=== PATIENT | male | born 1945 | race Hispanic/Latino ===

== ENCOUNTER 2016-03-14 13:28 | Inpatient (IN) | payer MEDICARE, OTHER ==
[~2016-03-14 13:28] MED LIST: AMARYL PO SCH
[2016-03-14 14:03] LABS: Basophils % (Auto) 0.6 % (0.0-1.8); Eosinophils % (Auto) 2.6 % (0.0-4.3); Hematocrit 45.6 % (35.5-45.6); Hemoglobin 15.4 gm/dl (11.8-15.2); Mean Corpuscular HGB Conc 34 % (32-34); Mean Corpuscular Hemoglobin 30 pg (28-32); Mean Corpuscular Volume 89 fl (84-94); Platelet Count 272 K/mm3 (140-440); Red Blood Count 5.12 M/mm3 (3.65-5.03); Red Cell Distribution Width 14.2 % (13.2-15.2); White Blood Count 8.7 K/mm3 (4.5-11.0)
--- NOTE | 2016-03-14 14:07 | Cat Scan Report ---
FINAL REPORT EXAM: CT HEAD/BRAIN WO CON HISTORY: neuro deficits < 6hrs or sx present upon awakening TECHNIQUE: CT examination of the head without IV contrast PRIORS: None. FINDINGS: Cerebrovascular atherosclerotic calcification is noted in the skullbase. No acute air-fluid level visualized in the included air-filled sinuses. Bone windows demonstrate no fracture. There is ventricular and sulcal prominence compatible with global cerebrocortical atrophy. The brain contains no mass, mass effect, hemorrhage, or acute infarct. There is no extra-axial intracranial bleed, brain bleed, or midline shift. IMPRESSION: No acute CVA, intracranial bleed, or brain mass
[2016-03-14 14:14] LABS: INR 0.99 (0.87-1.13)
[2016-03-14 14:15] LABS: Partial Thromboplastin Time 25.8 Sec. (24.2-36.6)
--- NOTE | 2016-03-14 14:25 | Emergency Department Report ---
ED Neuro Deficit HPI - General Chief Complaint: Neuro Symptoms/Deficit Stated Complaint: POSSIBLE STROKE Time Seen by Provider: 03/14/16 13:31 Source: patient, EMS Mode of arrival: Stretcher Limitations: No Limitations - History of Present Illness Initial Comments: 70-year-old male presents to the emergency department via EMS for evaluation of a possible stroke. Per report, the patient had acute onset of altered mental status and the inability to walk with difficulty speaking approximately 30 minutes prior to arrival. Family states patient normally walks without difficulty. Patient states he is feeling much better at this time. He states he simply passed out. Patient states he has not seen a doctor in many years. EMS reports a fingerstick blood sugar over 400. He also reports that the patient is having multiple PVCs on the cardiac/vascular sonographer. There are no other complaints. -: Sudden, This afternoon Location: speech, altered Presenting Symptoms: Present: Unable to Speak Clearly, Altered Mental Status History of same: No Place: home Severity: moderate Improves With: time Worsens With: none On Anticoagulants: No Context: sudden onset Associated Symptoms: denies other symptoms Treatments Prior to Arrival: none - Related Data Home Medications: Home Medications Medication Instructions Recorded Confirmed Last Taken No Known Home Medications [No 03/14/16 03/14/16 Unknown Reported Home Medications] Allergies/Adverse Reactions: Allergies Allergy/AdvReac Type Severity Reaction Status Date / Time No Known Allergies Allergy Unverified 03/14/16 13:29 ED Review of Systems ROS: Stated complaint: POSSIBLE STROKE Other details as noted in HPI Comment: All other systems reviewed and negative Cardiovascular: syncope Neurological: as per HPI ED Past Medical Hx - Past Medical History Previous Medical History?: No - Surgical History Past Surgical History?: No - Family History Family history: CAD/OK, diabetes - Medications Home Medications: Home Medications Medication Instructions Recorded Confirmed Last Taken Type No Known Home Medications [No 03/14/16 03/14/16 Unknown History Reported Home Medications] ED Neuro Physical Exam - General Limitations: No Limitations General appearance: alert Suspected Stroke: No - Head Head exam: Present: atraumatic, normocephalic - Eye Eye exam: Present: normal appearance, PERRL, EOMI - ENT ENT exam: Present: normal exam, normal orophraynx, mucous membranes moist - Neck Neck exam: Present: normal inspection, full ROM. Absent: tenderness - Respiratory Respiratory exam: Present: normal lung sounds bilaterally. Absent: respiratory distress - Cardiovascular Cardiovascular Exam: Present: regular rate, normal rhythm, normal heart sounds - GI/Abdominal GI/Abdominal exam: Present: soft, distended, normal bowel sounds. Absent: tenderness, guarding, rebound - Extremities Exam Extremities exam: Present: normal inspection, full ROM. Absent: tenderness - Back Exam Back exam: Present: normal inspection, full ROM. Absent: tenderness - Neurological Exam Neurological exam: Present: alert, oriented X3. Absent: motor sensory deficit - NIHSS Assessment Interval: Baseline 1a. Level of Consciousness: alert 1b. LOC Questions: answers correctly 1c. LOC Commands: performs tasks correctly 2. Best Gaze: normal 3. Visual: no visual loss 4. Facial Palsy: normal symmetrical movement 5b. Motor Arm Right: no drift 5a. Motor Arm Left: no drift 6a. Motor Leg Left: no drift 6b. Motor Leg Right: no drift 7. Limb Ataxia: absent 8. Sensory: normal 9. Best Language: no aphasia 10. Dysarthria: normal 11. Extinction/Inattention: no abnormality Total Score: 0 Stroke Severity: No Stroke Symptoms - Skin Skin exam: Present: warm, dry, intact ED Course Vital Signs 03/14/16 03/14/16 13:42 13:45 Temperature 98.4 F Pulse Rate 76 Respiratory 18 18 Rate Blood Pressure 155/84 [Right] O2 Sat by Pulse 98 Oximetry - Lab Data Result diagrams: 03/14/16 13:40 03/14/16 13:40 Lab Results 03/14/16 03/14/16 03/14/16 Range/Units 13:40 13:40 13:40 WBC 8.7 (4.5-11.0) K/mm3 RBC 5.12 H (3.65-5.03) M/mm3 Hgb 15.4 H (11.8-15.2) gm/dl Hct 45.6 (35.5-45.6) % MCV 89 (84-94) fl MCH 30 (28-32) pg MCHC 34 (32-34) % RDW 14.2 (13.2-15.2) % Plt Count 272 (140-440) K/mm3 Lymph % (Auto) 31.3 (13.4-35.0) % [place] % (Auto) 7.4 H (0.0-7.3) % Eos % (Auto) 2.6 (0.0-4.3) % Baso % (Auto) 0.6 (0.0-1.8) % Lymph # 2.7 (1.2-5.4) K/mm3 [place] # 0.6 (0.0-0.8) K/mm3 Eos # 0.2 (0.0-0.4) K/mm3 Baso # 0.1 (0.0-0.1) K/mm3 Seg Neutrophils % 58.1 (40.0-70.0) % Seg Neutrophils # 5.1 (1.8-7.7) K/mm3 PT 13.0 (12.2-14.9) Sec. INR 0.99 (0.87-1.13) APTT 25.8 (24.2-36.6) Sec. Thrombin Time (15.1-19.6) Sec. Sodium 134 L (137-145) mmol/L Potassium 4.1 (3.6-5.0) mmol/L Chloride 96.3 L (98-107) mmol/L Carbon Dioxide 24 (22-30) mmol/L Anion Gap 18 mmol/L BUN 14 (9-20) mg/dL Creatinine 1.0 (0.8-1.5) mg/dL Estimated GFR > 60 ml/min BUN/Creatinine Ratio 14.00 % Glucose 269 H (75-100) mg/dL Calcium 9.1 (8.4-10.2) mg/dL Magnesium 2.0 (1.7-2.3) mg/dL Total Bilirubin (0.1-1.2) mg/dL Direct Bilirubin (0-0.2) mg/dL AST (5-40) units/L ALT (7-56) units/L Alkaline Phosphatase (35-129) units/L Troponin T < 0.010 (0.00-0.029) ng/mL Total Protein (6.3-8.2) g/dL Albumin (3.9-5) g/dL Albumin/Globulin Ratio % Plasma/Serum Alcohol (0-0.07) gm% 03/14/16 03/14/16 03/14/16 Range/Units 13:40 13:40 13:40 WBC (4.5-11.0) K/mm3 RBC (3.65-5.03) M/mm3 Hgb (11.8-15.2) gm/dl Hct (35.5-45.6) % MCV (84-94) fl MCH (28-32) pg MCHC (32-34) % RDW (13.2-15.2) % Plt Count (140-440) K/mm3 Lymph % (Auto) (13.4-35.0) % [place] % (Auto) (0.0-7.3) % Eos % (Auto) (0.0-4.3) % Baso % (Auto) (0.0-1.8) % Lymph # (1.2-5.4) K/mm3 [place] # (0.0-0.8) K/mm3 Eos # (0.0-0.4) K/mm3 Baso # (0.0-0.1) K/mm3 Seg Neutrophils % (40.0-70.0) % Seg Neutrophils # (1.8-7.7) K/mm3 PT (12.2-14.9) Sec. INR (0.87-1.13) APTT (24.2-36.6) Sec. Thrombin Time 16.5 (15.1-19.6) Sec. Sodium (137-145) mmol/L Potassium (3.6-5.0) mmol/L Chloride (98-107) mmol/L Carbon Dioxide (22-30) mmol/L Anion Gap mmol/L BUN (9-20) mg/dL Creatinine (0.8-1.5) mg/dL Estimated GFR ml/min BUN/Creatinine Ratio % Glucose (75-100) mg/dL Calcium (8.4-10.2) mg/dL Magnesium (1.7-2.3) mg/dL Total Bilirubin 0.4 (0.1-1.2) mg/dL Direct Bilirubin < 0.2 (0-0.2) mg/dL AST 16 (5-40) units/L ALT 21 (7-56) units/L Alkaline Phosphatase 96 (35-129) units/L Troponin T (0.00-0.029) ng/mL Total Protein 7.1 (6.3-8.2) g/dL Albumin 3.8 L (3.9-5) g/dL Albumin/Globulin Ratio 1.2 % Plasma/Serum Alcohol < 0.01 (0-0.07) gm% - EKG Data -: EKG Interpreted by Me EKG shows normal: sinus rhythm, axis, intervals, QRS complexes, ST-T waves Rate: normal When compared to previous EKG there are: previous EKG unavailable Interpretation: normal EKG - Radiology Data Radiology results: report reviewed, image reviewed CT of the brain shows no acute intracranial abnormality. - Medical Decision Making Patient has remained asymptomatic in the emergency department. Lab results reviewed and discussed with the patient. Patient will be admitted by the hospitalist for further evaluation. - Differential Diagnosis syncope, TIA, electrolyte abnormality - Thrombolytic Inclusion/Exclusion Thrombolytic Contraindications: Rapidily Improving s/s Critical care attestation.: If time is entered above; I have spent that time in minutes in the direct care of this critically ill patient, excluding procedure time. ED Disposition Clinical Impression: TIA (transient ischemic attack) Qualifiers: Transient cerebral ischemia type: unspecified Qualified Code(s): G45.9 - Transient cerebral ischemic attack, unspecified Disposition: OP ADMITTED IP TO THIS HOSP Is pt being admited?: Yes Condition: Stable Time of Disposition: 15:06
[2016-03-14 14:26] LABS: Anion Gap 18 mmol/L; Blood Urea Nitrogen 14 mg/dL (9-20); Calcium 9.1 mg/dL (8.4-10.2); Carbon Dioxide 24 mmol/L (22-30); Chloride 96.3 mmol/L (98-107); Glucose 269 mg/dL (75-100); Potassium 4.1 mmol/L (3.6-5.0); Sodium 134 mmol/L (137-145)
[2016-03-14 14:29] LABS: Alanine Aminotransferase 21 units/L (7-56); Albumin 3.8 g/dL (3.9-5); Albumin/Globulin Ratio 1.2 %; Alkaline Phosphatase 96 units/L (35-129); Bilirubin,Total 0.4 mg/dL (0.1-1.2); Total Protein 7.1 g/dL (6.3-8.2)
[2016-03-14 14:37] LABS: Bilirubin,Direct < 0.2 mg/dL (0-0.2)
--- NOTE | 2016-03-14 15:19 | Admit Criteria Form ---
Admission Criteria Documentation: TRANSIENT ISCHEMIC ATTACK (TIA) Clinical Indications for Admission to Inpatient Care (Place 'X' for any and all applicable criteria): Admission is indicated for ANY ONE of the following(1)(2)(3)(4)(5): [ ]I. Immediate inpatient procedure is needed (eg, endarterectomy). [ ]II. Inpatient admission required rather than observation care (Also use Transient Ischemic Attack (TIA): Observation Care Criteria as appropriate) because of ANY ONE of the following: [ ]a) Focal neurologic signs or symptoms persist or recurring [ ]b) Cardiac arrhythmias of immediate concern [ ]c) Clinically significant cardiac disorder identified that requires inpatient care (eg, severe valvular disease, atrial myxoma, cardiomyopathy) [ ]d) Hypertension requiring inpatient treatment [ ]e) Parenteral anticoagulation required (eg, alternative forms of anticoagulation not appropriate or not feasible) as indicated by ALL of the following(13): [ ]i) Temporary subtherapeutic anticoagulation unacceptable because of high risk of short-term venous or arterial thromboembolism due to ANY ONE of the following(14)(15)(16): [ ]1) Atrial fibrillation suspected as etiology of TIA(17)(18)(19)(20)(21) [ ]2) Venous thromboembolism within past 12 months [ ]3) Underlying malignancy [ ]4) Patient with mechanical cardiac valve(22)( 23) [ ]5) Underlying hypercoagulable state (eg, protein C or protein S deficiency antithrombin deficiency, antiphospholipid antibodies) [ ]6) Patient at temporary high risk of thromboembolism (eg, status post orthopedic surgery) [ ]ii) Contraindications to outpatient use of "bridging" agent or alternative oral anticoagulant[B] as indicated by ALL of the following: [ ]1) Contraindication to outpatient use of low- molecular-weight heparin as "bridging" agent as indicated by ANY ONE of the following(15): [ ]A. Documented current or history of heparin-induced thrombocytopenia(24) [ ]B. Severe thrombocytopenia (eg, platelet count less than 50,000/mm3 (16o643/L) [ ]C. Documented allergy to heparin, low- molecular-weight heparin, or pork products [ ]D. Renal failure (creatinine clearance less than 30 mL/min/1.73m2 (0.50mL/sec/1.73m2) or on dialysis) [ ]E. Inability to manage self-injection ( eg, by patient, caregiver, or visiting nurse) [ ]2) Contraindication to outpatient use of fondaparinux as "bridging" agent as indicated by ANY ONE of the following(25)(26 )(27)(28): [ ]A. Severe thrombocytopenia (eg, platelet count less than 50,000/mm3 (50 x109/L)) [ ]B.Hypersensitivity to fondaparinux, related drugs, or product components [ ]C.Renal failure (creatinine clearance less than 30 mL/min/1.73m2 (0.50mL/sec/1.73m2) or on dialysis) [ ]D.Inability to manage self-injection ( eg, by patient, caregiver, or visiting nurse [ ]3. Oral direct thrombin inhibitor (eg, dabigatran) or oral coagulation factor Xa inhibitor (eg, rivaroxaban, apixaban) not appropriate as oral anticoagulation (eg, indication not appropriate) or contraindicated (eg, hypersensitivity, creatinine clearance less than 15 mL/min/1.73m2 ( 0.25 mL/sec/1.73m2) or on dialysis). [ ]f) Continuous IV infusion of anticoagulant, platelet inhibitor, vasoactive or antiarrhythmia(18)(19) [ ]g) Other condition, treatment, or monitoring requiring inpatient admission [ ]III. Contraindications and/or Inappropriate clinical situations for Observational Care in patients with Transient Ischemic Attack (TIA), when ANY ONE of the following is required: [ ]a) Patient with persistent or severe neurological deficit 24 [ ]b) Patient with acute CVA or other identified pathology should be admitted to inpatient for further care 25 [X ]IV. General contraindications and/or Inappropriate clinical situations for Observational Care in patients with Transient Ischemic Attack (TIA), when ANY ONE of the following is required: [X ]a) Prediction of prolongation of LOS based on ANY ONE of the following may be considered as a contraindication for observational care 2, 3, 4, 5, 6, 7, 8, 9, 10, 11 [ X]i) Age > 65 yrs. [X ]ii) Patient arriving by ambulance [ ]iii) Patient with high acuity [ ]iv) Patient requiring vital sign monitoring [ ]v) Patient on IV medication [ ]b) Systolic blood pressures 180mmHg 3,12 [ ]c) Patient with altered mental status including delirium and other alteration of consciousness, (3) [ ]d) Patient whose discharge disposition will be to a care home home or rehabilitation home should not be managed in Emergency Department Observation Unit. CMS rule requires 3 days hospital stay before such placement.3,13 [ ]e) Patient with failure to thrive due to broad array of etiologies 3,16,17 [ ]f) Inability to ambulate 3,14 Extended stay beyond goal length of stay may be needed for(4)(30)(32): [ ]a) Parenteral anticoagulation required [ ]b) Dangerous arrhythmia [ ]c) Cardiac valvular disorder, atrial myxoma, cardiomyopathy [ ]d) Uncontrolled severe hypertension [ ]e) Severe carotid stenosis [ ]f) Active comorbidities (eg, heart failure) [ ]g) Extracranial vertebrobasilar disease(29) [ ]h) Clinical evolution of TIA into cerebrovascular accident (stroke) The original [employer] content created by [employer] has been revised. The portions of thecontent which have been revised are identified through the use of italic text or in bold, and [facility] has neither reviewed nor approved the modified material. All other unmodified content is copyright [employer]. Please see references footnoted in the original [employer] edition 2016 Admission Criteria Met: Yes
[2016-03-14 15:53] LABS: Urine Drugs of Abuse Note Disclamer
--- NOTE | 2016-03-14 17:15 | History and Physical Report ---
History of Present Illness Date of examination: 03/14/16 Date of admission: 03/14/16 Chief complaint: Slumped over with Rt sided weakness for a minute. History of present illness: &1 y/o male with no significant PMH comes in for sudden onset of slumping over and Rt sided weakness which lasted for a few minutes.No chest pain .No diaphoresis. No SOB. Past History Past Medical History: No medical history Past Surgical History: No surgical history Social history: lives with family Family history: hypertension Medications and Allergies Allergies Allergy/AdvReac Type Severity Reaction Status Date / Time No Known Allergies Allergy Unverified 03/14/16 13:29 Home Medications Medication Instructions Recorded Confirmed Last Taken Type No Known Home Medications [No 03/14/16 03/14/16 Unknown History Reported Home Medications] Review of Systems All systems: negative Neurological: transient paralysis (Rt Side) Exam - Constitutional Vitals: Temp Pulse Resp BP Pulse Ox 98.4 F 60 16 133/86 98 03/14/16 13:42 03/14/16 15:46 03/14/16 15:41 03/14/16 15:41 03/14/16 15:41 General appearance: Present: no acute distress, well-nourished - EENT Eyes: Present: PERRL ENT: hearing intact, clear oral mucosa - Neck Neck: Present: supple, normal ROM - Respiratory Respiratory effort: normal Respiratory: bilateral: CTA - Cardiovascular Heart Sounds: Present: S1 & S2. Absent: rub, click - Extremities Extremities: pulses symmetrical, No edema Peripheral Pulses: within normal limits - Abdominal General gastrointestinal: Present: soft, non-tender, non-distended, normal bowel sounds Male genitourinary: Present: normal - Integumentary Integumentary: Present: clear, warm, dry - Musculoskeletal Musculoskeletal: gait normal, strength equal bilaterally - Psychiatric Psychiatric: appropriate mood/affect, intact judgment & insight - Neurologic Neurologic: CNII-XII intact, moves all extremities Results - Labs CBC & Chem 7: 03/14/16 13:40 03/14/16 13:40 Labs: Abnormal lab results 03/14/16 03/14/16 03/14/16 Range/Units 13:40 13:40 13:40 RBC 5.12 H (3.65-5.03) M/mm3 Hgb 15.4 H (11.8-15.2) gm/dl [place] % (Auto) 7.4 H (0.0-7.3) % Sodium 134 L (137-145) mmol/L Chloride 96.3 L (98-107) mmol/L Glucose 269 H (75-100) mg/dL Albumin 3.8 L (3.9-5) g/dL - Imaging and Cardiology CT Scan - head: report reviewed (No acute CVA) Assessment and Plan - Patient Problems (1) TIA (transient ischemic attack) Current Visit: Yes Status: Acute Qualifiers: 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 Rt hemiparesis resolved (2) Diabetes mellitus, new onset Current Visit: Yes Status: Acute Plan to address problem: Blood glucose in 250 to 300 range Never been to a physician in last few years.No physical for few years. patient counselled about new onset DM. Check A1c. Coverage for now. Started on metformin 500 po bid and Glimepride 1 mg po qd. (3) DVT prophylaxis Current Visit: Yes Status: Acute Plan to address problem: On lovenox 40 mg sq qd.
[2016-03-14] MEDS ORDERED: NOVOLOG SUB-Q ONE (18:32)
[2016-03-15] MEDS ORDERED: LEXISCAN IV NR (08:12)
[2016-03-15] MEDS: GLUCOPHAGE PO SCH ×2 (10:25→17:39)
[2016-03-15] MEDS: AMARYL PO SCH (10:25)
--- NOTE | 2016-03-15 12:11 | Magnetic Resonance Report ---
MRI scan of brain: History: TIA. Technique: Multiplanar multisequence images were obtained without contrast injection. Findings: 3 lateral mm focal area of restricted diffusion is noted at the left basal ganglia slightly anterolateral to thalamus. No evidence of hemorrhage. Ventricles are normal in size and midline in location. Mild volume loss. No extra-axial fluid collection. Normal brainstem and cerebellum. Normal sinuses and mastoid air cells. Impression: Focal area of acute ischemia left basal ganglia. No hemorrhage.
--- NOTE | 2016-03-15 13:10 | Progress Note ---
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 Rt hemiparesis resolved place on aspirin, statin, get 2d echo, carotid doppler PT eval, neuro consult (2) Diabetes mellitus, new onset Current Visit: Yes Status: Acute Plan to address problem: Blood glucose in 250 to 300 range Never been to a physician in last few years. No physical for few years. patient counselled about new onset DM. A1c 10.5, ADA diet cont on metformin 500 po bid and Glimepride 1 mg po qd. (3) DVT prophylaxis Current Visit: Yes Status: Acute Plan to address problem: On lovenox 40 mg sq qd. History Interval history: Patient seen and examined, No new complaints, tolerating diet, denies any weakness. Hospitalist Physical - Physical exam Narrative exam: General appearance: Present: no acute distress, well-nourished - EENT Eyes: Present: PERRL ENT: hearing intact, clear oral mucosa - Neck Neck: Present: supple, normal ROM - Respiratory Respiratory effort: normal Respiratory: bilateral: CTA - Cardiovascular Heart Sounds: Present: S1 & S2. Absent: rub, click - Extremities Extremities: pulses symmetrical, No edema Peripheral Pulses: within normal limits - Abdominal General gastrointestinal: Present: soft, non-tender, non-distended, normal bowel sounds Male genitourinary: Present: normal - Integumentary Integumentary: Present: clear, warm, dry - Musculoskeletal Musculoskeletal: gait normal, strength equal bilaterally - Psychiatric Psychiatric: appropriate mood/affect, intact judgment & insight - Neurologic Neurologic: CNII-XII intact, moves all extremities - Constitutional Vitals: Temp Pulse Resp BP Pulse Ox 98.2 F 84 20 119/82 96 03/15/16 05:14 03/15/16 08:52 03/15/16 05:14 03/15/16 08:52 03/15/16 05:14 General appearance: Present: no acute distress, well-nourished Results - Labs CBC & Chem 7: 03/14/16 13:40 03/14/16 13:40 Labs: Laboratory Last Values WBC 8.7 K/mm3 (4.5-11.0) 03/14/16 13:40 RBC 5.12 M/mm3 (3.65-5.03) H 03/14/16 13:40 Hgb 15.4 gm/dl (11.8-15.2) H 03/14/16 13:40 Hct 45.6 % (35.5-45.6) 03/14/16 13:40 MCV 89 fl (84-94) 03/14/16 13:40 MCH 30 pg (28-32) 03/14/16 13:40 MCHC 34 % (32-34) 03/14/16 13:40 RDW 14.2 % (13.2-15.2) 03/14/16 13:40 Plt Count 272 K/mm3 (140-440) 03/14/16 13:40 Lymph % (Auto) 31.3 % (13.4-35.0) 03/14/16 13:40 Saline % (Auto) 7.4 % (0.0-7.3) H 03/14/16 13:40 Eos % (Auto) 2.6 % (0.0-4.3) 03/14/16 13:40 Baso % (Auto) 0.6 % (0.0-1.8) 03/14/16 13:40 Lymph # 2.7 K/mm3 (1.2-5.4) 03/14/16 13:40 Saline # 0.6 K/mm3 (0.0-0.8) 03/14/16 13:40 Eos # 0.2 K/mm3 (0.0-0.4) 03/14/16 13:40 Baso # 0.1 K/mm3 (0.0-0.1) 03/14/16 13:40 Seg Neutrophils % 58.1 % (40.0-70.0) 03/14/16 13:40 Seg Neutrophils # 5.1 K/mm3 (1.8-7.7) 03/14/16 13:40 PT 13.0 Sec. (12.2-14.9) 03/14/16 13:40 INR 0.99 (0.87-1.13) 03/14/16 13:40 APTT 25.8 Sec. (24.2-36.6) 03/14/16 13:40 Thrombin Time 16.5 Sec. (15.1-19.6) 03/14/16 13:40 Sodium 134 mmol/L (137-145) L 03/14/16 13:40 Potassium 4.1 mmol/L (3.6-5.0) 03/14/16 13:40 Chloride 96.3 mmol/L (98-107) L 03/14/16 13:40 Carbon Dioxide 24 mmol/L (22-30) 03/14/16 13:40 Anion Gap 18 mmol/L 03/14/16 13:40 BUN 14 mg/dL (9-20) 03/14/16 13:40 Creatinine 1.0 mg/dL (0.8-1.5) 03/14/16 13:40 Estimated GFR > 60 ml/min 03/14/16 13:40 BUN/Creatinine Ratio 14.00 % 03/14/16 13:40 Glucose 269 mg/dL (75-100) H 03/14/16 13:40 POC Glucose 241 (70-105) H 03/15/16 12:48 Hemoglobin A1c 10.5 % (4-6) H 03/15/16 09:53 Calcium 9.1 mg/dL (8.4-10.2) 03/14/16 13:40 Magnesium 2.0 mg/dL (1.7-2.3) 03/14/16 13:40 Total Bilirubin 0.4 mg/dL (0.1-1.2) 03/14/16 13:40 Direct Bilirubin < 0.2 mg/dL (0-0.2) 03/14/16 13:40 AST 16 units/L (5-40) 03/14/16 13:40 ALT 21 units/L (7-56) 03/14/16 13:40 Alkaline Phosphatase 96 units/L (35-129) 03/14/16 13:40 Troponin T < 0.010 ng/mL (0.00-0.029) 03/14/16 13:40 Total Protein 7.1 g/dL (6.3-8.2) 03/14/16 13:40 Albumin 3.8 g/dL (3.9-5) L 03/14/16 13:40 Albumin/Globulin Ratio 1.2 % 03/14/16 13:40 Urine Opiates Screen Presumptive negative 03/14/16 15:42 Urine Methadone Screen Presumptive negative 03/14/16 15:42 Ur Barbiturates Screen Presumptive negative 03/14/16 15:42 Ur Phencyclidine Scrn Presumptive negative 03/14/16 15:42 Ur Amphetamines Screen Presumptive negative 03/14/16 15:42 U Benzodiazepines Scrn Presumptive negative 03/14/16 15:42 Urine Cocaine Screen Presumptive negative 03/14/16 15:42 U Marijuana (THC) Screen Presumptive negative 03/14/16 15:42 Drugs of Abuse Note Disclamer 03/14/16 15:42 Plasma/Serum Alcohol < 0.01 gm% (0-0.07) 03/14/16 13:40
[2016-03-15] MEDS: BABY ASPIRIN PO SCH (14:39)
[2016-03-15] MEDS ORDERED: NACL 0.9% 1000 ML 1,000 ML IV SCH (15:00)
[2016-03-15] MEDS: LOVENOX SUB-Q SCH (21:53)
[2016-03-16] MEDS: PROTONIX PO SCH (09:49)
[2016-03-16] MEDS: AMARYL PO SCH (09:49)
[2016-03-16] MEDS: GLUCOPHAGE PO SCH ×2 (09:49→17:58)
[2016-03-16] MEDS: BABY ASPIRIN PO SCH (09:49)
--- NOTE | 2016-03-16 10:03 | Discharge Summary ---
Providers - Providers Date of Admission: 03/14/16 15:11 Date of discharge: 03/16/16 Attending physician: ALISIA SANTOS 03/14/16 17:37 Consult to Case Management [CONS] Routine Services Needed at Discharge: Home Health Services Notified:: case management Consult to Dietitian/Nutrition [CONS] Routine Physician Instructions: Teach finger sticks Reason For Exam: New onset DM Reason for Consult: Diet education 03/15/16 13:13 Consult to Physician [CONS] Routine Consulting Provider: JEROME CARROLL Reason For Exam: acute cva Place consult to:: chun Notified:: chun 03/16/16 09:04 Physical Therapy Evaluation and Treat [CONS] Routine Comment: Reason For Exam: placement Primary care physician: FREELANCE RECRUITER Hospitalization Condition: Stable Hospital course: 70 y/o male with no significant PMH comes in for sudden onset of slumping over and Rt sided weakness which lasted for a few minutes. He was asymptomatic and his BG was 269 on admission. 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 Rt hemiparesis resolved placed on aspirin, statin, 2d echo showed preserved EF, carotid doppler showed <50% stenosis bilaterally neurology recommended risk factor modification (2) Diabetes mellitus, new onset Current Visit: Yes Status: Acute Plan to address problem: Blood glucose in 250 to 300 range on admission Never been to a physician in last few years. No physical for few years. patient counselled about new onset DM. Hb A1c 10.5, ADA diet cont on metformin 500 po bid and Glimepride 1 mg po qd. Disposition: DISCHARGED TO HOME OR SELFCARE Time spent for discharge: 35 minutes Core Measure Documentation - Palliative Care Palliative Care/ Comfort Measures: Not Applicable - Core Measures Any of the following diagnoses?: stroke - Stroke Discharge Requirements Statin for LDL = or >70 mg/dl on DC: Yes Anticoag for atrial fib/atrial flutter: Not Applicable Antithrombotic for ischemic stroke: Yes Exam - Physical Exam Narrative exam: General appearance: Present: no acute distress, well-nourished - EENT Eyes: Present: PERRL ENT: hearing intact, clear oral mucosa - Neck Neck: Present: supple, normal ROM - Respiratory Respiratory effort: normal Respiratory: bilateral: CTA - Cardiovascular Heart Sounds: Present: S1 & S2. Absent: rub, click - Extremities Extremities: pulses symmetrical, No edema Peripheral Pulses: within normal limits - Abdominal General gastrointestinal: Present: soft, non-tender, non-distended, normal bowel sounds Male genitourinary: Present: normal - Integumentary Integumentary: Present: clear, warm, dry - Musculoskeletal Musculoskeletal: gait normal, strength equal bilaterally - Psychiatric Psychiatric: appropriate mood/affect, intact judgment & insight - Neurologic Neurologic: CNII-XII intact, moves all extremities - Constitutional Vitals: Temp Pulse Resp BP Pulse Ox 97.9 F 66 16 112/78 96 03/16/16 09:17 03/16/16 09:17 03/16/16 09:17 03/16/16 09:17 03/16/16 09:17 Plan Activity: no restrictions Weight Bearing Status: Weight Bear as Tolerated Diet: low cholesterol, low salt, diabetic Follow up with: PRIMARY CARE, [Primary Care Provider] - 3-5 Days Prescriptions: AtorvaSTATin [Lipitor] 40 mg PO QHS #30 tablet Glimepiride [Amaryl] 1 mg PO QDDIAB #60 tablet Aspirin [Aspirin BABY CHEW TAB] 81 mg PO QDAY #30 tab.chew metFORMIN [Glucophage] 500 mg PO BIDDIAB #60 tablet
--- NOTE | 2016-03-16 13:08 | Treadmill Report ---
THALLIUM STRESS TEST LEFT VENTRICLE: Left ventricular chamber size is within normal. Perfusion study demonstrates homogeneous uptake of the tracer in all segments, no significant perfusion defects identified. Gated analysis demonstrates normal left ventricular systolic function, ejection fraction 77%. CONCLUSION: Normal myocardial perfusion study. [facility]# [id number] CA/NTS
--- NOTE | 2016-03-16 18:49 | Echocardiography Report ---
Transthoracic Echocardiogram Indication: Acute CVA BP: 119/63 Findings Left Ventricle: The left ventricular chamber size is normal. Mild concentric left ventricular hypertrophy is observed. Global left ventricular wall motion and contractility are within normal limits. Global left ventricular systolic function is at the lower limits of normal. The estimated ejection fraction is 50-55%. Abnormal left ventricular diastolic filling is observed, consistent with impaired relaxation. Left Atrium: The left atrium is mildly dilated. Right Ventricle: The right ventricular cavity size is normal. The right ventricular global systolic function is normal. Right Atrium: The right atrial cavity size is normal. The interatrial septum appears normal. Aortic Valve: The aortic valve is not well visualized. The aortic valve leaflets are moderately thickened. Mild aortic leaflet calcification is visualized. Systolic excursion of the aortic valve cusps is reduced. There is no evidence of aortic regurgitation. There is mild aortic stenosis. The peak instantaneous gradient of the aortic valve is 14 mmHg. Mitral Valve: There is mitral annular calcification. The mitral valve leaflets are mildly thickened. Mild mitral leaflet calcification is visualized. There is mild mitral regurgitation. There is no evidence of mitral stenosis. Tricuspid Valve: The tricuspid valve leaflets are normal. There is mild tricuspid regurgitation. No pulmonary hypertension is noted. There is no tricuspid stenosis. Pulmonic Valve: The pulmonic valve appears normal. There is trace pulmonic regurgitation. There is no pulmonic stenosis. Pericardium: A trivial pericardial effusion is visualized. Aorta: There is no dilatation of the ascending aorta. There is no dilatation of the aortic root. Venous: The inferior vena cava appears normal in size. Contrast: Intravenous agitated saline contrast was used to assess intracardiac shunting. Measurements Chambers MM Name Value Normal Range Ao root diameter (MM) 2.7 cm (2 - 3.7) LA dimension (AP) MM 3.9 cm (1.9 - 4) LA:Ao ratio (MM) 1.44 ratio - Chambers 2D Name Value Normal Range RVIDd (AP) 2D 2.39 cm (0.9 - 2.6) IVSd (2D) 1.06 cm (0.6 - 1.1) LVPWd (2D) 1.02 cm (0.6 - 1.1) IVS:LVPW ratio (2D) 1.04 ratio - LVIDd (2D) 3.49 cm (3.7 - 5.6) LVIDs (2D) 2.47 cm (2 - 3.8) LV FS (Teichholz) (2D) 29.2 % - LV FS (cube) (2D) 29.2 % - EF Teichholz (2D) 57 % - LA dimension (AP) 2D 4 cm (1.9 - 4) Volumes/Mass Name Value Normal Range LA ESV SP 4CH (MOD) 21 ml - LA ESV SP 2CH (MOD) 22 ml - LA ESV BP (MOD) 23 ml - LA ESV BP (MOD) index 13.2 ml/m2 - Diastolic/Systolic Function Name Value Normal Range MV E-wave Vmax 0.8 m/sec - MV deceleration time 187 msec - MV A-wave Vmax 1.06 m/sec - MV E:A ratio 0.8 ratio - LV septal e' Vmax 0.04 m/sec - LV lateral e' Vmax 0.05 m/sec - LV E:e' septal ratio 19.1 ratio - LV E:e' lateral ratio 15.4 ratio - Aortic Valve Name Value Normal Range AV VTI 36.7 cm - AV peak gradient 14 mmHg - AV mean gradient 8 mmHg - LVOT diameter 2 cm - LVOT VTI 23.1 cm - LVOT mean gradient 2 mmHg - SV LVOT 73 ml - MAYNOR (continuity VTI) 1.98 cm2 - Mitral Valve Name Value Normal Range MV PHT 55 msec - MR Vmax 4.1 m/sec - MVA (PHT) 4 cm2 - Pulmonic Valve/Qp:Qs Name Value Normal Range PV Vmax 1.03 m/sec - PV peak gradient 4 mmHg - MD end-diastolic Vmax 0.96 m/sec - PV acceleration time 123 msec -
[2016-03-16] MEDS: LOVENOX SUB-Q SCH (21:45)
--- NOTE | 2016-03-16 22:51 | Progress Note ---
Assessment and Plan Assessment and plan: (1) Acute CVA Current Visit: Yes Status: Acute Plan to address problem: MRI showed acute left basal ganglia infract Completely recovered. Rt hemiparesis resolved placed on aspirin, statin, 2d echo showed preserved EF, carotid doppler result pending PT eval, neuro consult pending (2) Diabetes mellitus, new onset Current Visit: Yes Status: Acute Plan to address problem: Blood glucose in 250 to 300 range Never been to a physician in last few years. No physical for few years. patient counselled about new onset DM. A1c 10.5, cont ADA diet cont on metformin 500 po bid and Glimepride 1 mg po qd. (3) DVT prophylaxis Current Visit: Yes Status: Acute Plan to address problem: On lovenox 40 mg sq qd. History Interval history: Patient seen and examined, No new complaints, tolerating diet, denies any weakness. Hospitalist Physical - Physical exam Narrative exam: General appearance: Present: no acute distress, well-nourished - EENT Eyes: Present: PERRL ENT: hearing intact, clear oral mucosa - Neck Neck: Present: supple, normal ROM - Respiratory Respiratory effort: normal Respiratory: bilateral: CTA - Cardiovascular Heart Sounds: Present: S1 & S2. Absent: rub, click - Extremities Extremities: pulses symmetrical, No edema Peripheral Pulses: within normal limits - Abdominal General gastrointestinal: Present: soft, non-tender, non-distended, normal bowel sounds Male genitourinary: Present: normal - Integumentary Integumentary: Present: clear, warm, dry - Musculoskeletal Musculoskeletal: gait normal, strength equal bilaterally - Psychiatric Psychiatric: appropriate mood/affect, intact judgment & insight - Neurologic Neurologic: CNII-XII intact, moves all extremities - Constitutional Vitals: Temp Pulse Resp BP Pulse Ox 97.3 F L 89 20 165/86 96 03/16/16 19:37 03/16/16 19:37 03/16/16 19:37 03/16/16 19:37 03/16/16 22:00 General appearance: Present: no acute distress, well-nourished Results - Labs CBC & Chem 7: 03/14/16 13:40 03/14/16 13:40 Labs: Laboratory Last Values WBC 8.7 K/mm3 (4.5-11.0) 03/14/16 13:40 RBC 5.12 M/mm3 (3.65-5.03) H 03/14/16 13:40 Hgb 15.4 gm/dl (11.8-15.2) H 03/14/16 13:40 Hct 45.6 % (35.5-45.6) 03/14/16 13:40 MCV 89 fl (84-94) 03/14/16 13:40 MCH 30 pg (28-32) 03/14/16 13:40 MCHC 34 % (32-34) 03/14/16 13:40 RDW 14.2 % (13.2-15.2) 03/14/16 13:40 Plt Count 272 K/mm3 (140-440) 03/14/16 13:40 Lymph % (Auto) 31.3 % (13.4-35.0) 03/14/16 13:40 [place] % (Auto) 7.4 % (0.0-7.3) H 03/14/16 13:40 Eos % (Auto) 2.6 % (0.0-4.3) 03/14/16 13:40 Baso % (Auto) 0.6 % (0.0-1.8) 03/14/16 13:40 Lymph # 2.7 K/mm3 (1.2-5.4) 03/14/16 13:40 [place] # 0.6 K/mm3 (0.0-0.8) 03/14/16 13:40 Eos # 0.2 K/mm3 (0.0-0.4) 03/14/16 13:40 Baso # 0.1 K/mm3 (0.0-0.1) 03/14/16 13:40 Seg Neutrophils % 58.1 % (40.0-70.0) 03/14/16 13:40 Seg Neutrophils # 5.1 K/mm3 (1.8-7.7) 03/14/16 13:40 PT 13.0 Sec. (12.2-14.9) 03/14/16 13:40 INR 0.99 (0.87-1.13) 03/14/16 13:40 APTT 25.8 Sec. (24.2-36.6) 03/14/16 13:40 Thrombin Time 16.5 Sec. (15.1-19.6) 03/14/16 13:40 Sodium 134 mmol/L (137-145) L 03/14/16 13:40 Potassium 4.1 mmol/L (3.6-5.0) 03/14/16 13:40 Chloride 96.3 mmol/L (98-107) L 03/14/16 13:40 Carbon Dioxide 24 mmol/L (22-30) 03/14/16 13:40 Anion Gap 18 mmol/L 03/14/16 13:40 BUN 14 mg/dL (9-20) 03/14/16 13:40 Creatinine 1.0 mg/dL (0.8-1.5) 03/14/16 13:40 Estimated GFR > 60 ml/min 03/14/16 13:40 BUN/Creatinine Ratio 14.00 % 03/14/16 13:40 Glucose 269 mg/dL (75-100) H 03/14/16 13:40 POC Glucose 234 (70-105) H 03/16/16 22:04 Hemoglobin A1c 10.5 % (4-6) H 03/15/16 09:53 Calcium 9.1 mg/dL (8.4-10.2) 03/14/16 13:40 Magnesium 2.0 mg/dL (1.7-2.3) 03/14/16 13:40 Total Bilirubin 0.4 mg/dL (0.1-1.2) 03/14/16 13:40 Direct Bilirubin < 0.2 mg/dL (0-0.2) 03/14/16 13:40 AST 16 units/L (5-40) 03/14/16 13:40 ALT 21 units/L (7-56) 03/14/16 13:40 Alkaline Phosphatase 96 units/L (35-129) 03/14/16 13:40 Troponin T < 0.010 ng/mL (0.00-0.029) 03/14/16 13:40 Total Protein 7.1 g/dL (6.3-8.2) 03/14/16 13:40 Albumin 3.8 g/dL (3.9-5) L 03/14/16 13:40 Albumin/Globulin Ratio 1.2 % 03/14/16 13:40 Triglycerides 154 mg/dL (2-149) H 03/16/16 12:38 Cholesterol 193 mg/dL (50-199) 03/16/16 12:38 LDL Cholesterol Direct 133 mg/dL (50-130) H 03/16/16 12:38 HDL Cholesterol 30 mg/dL (40-59) L 03/16/16 12:38 Cholesterol/HDL Ratio 6.43 % 03/16/16 12:38 Urine Opiates Screen Presumptive negative 03/14/16 15:42 Urine Methadone Screen Presumptive negative 03/14/16 15:42 Ur Barbiturates Screen Presumptive negative 03/14/16 15:42 Ur Phencyclidine Scrn Presumptive negative 03/14/16 15:42 Ur Amphetamines Screen Presumptive negative 03/14/16 15:42 U Benzodiazepines Scrn Presumptive negative 03/14/16 15:42 Urine Cocaine Screen Presumptive negative 03/14/16 15:42 U Marijuana (THC) Screen Presumptive negative 03/14/16 15:42 Drugs of Abuse Note Disclamer 03/14/16 15:42 Plasma/Serum Alcohol < 0.01 gm% (0-0.07) 03/14/16 13:40
--- NOTE | 2016-03-17 08:10 | Vascular Lab Report ---
CAROTID DUPLEX STUDY: RIGHT PSVEDV CCA PROX:59910 CCA DIST: 5913 ICA PROX: 5213 ICA MID: 5315 ICA DIST: 4716 ECA: 69 VERT: 23 6 LEFT PSVEDV CCA PROX:35082 CCA DIST: 6515 ICA PROX: 7913 ICA MID: 5613 ICA DIST: 5515 ECA: 92 VERT: 37 9 REASON FOR EXAM: TIA. COMMENTS ON THE RIGHT: Doppler frequency analysis is consistent with 16 to 49 percent diameter reduction of the internal carotid artery. Minimal amount of plaque is seen. The common carotid artery is patent. The external carotid artery is patent. The vertebral artery has antegrade flow. COMMENTS ON THE LEFT: Doppler frequency analysis is consistent with 16 to 49 percent diameter reduction of the internal carotid artery. Minimal amount of plaque is seen. The common carotid artery is patent. The external carotid artery is patent. The vertebral artery has antegrade flow. IMPRESSION: Less than 50% diameter reduction in the internal carotid arteries bilaterally. Consider repeat carotid artery duplex in 12 months.
[2016-03-17 08:40] VITALS: BP 130/80
[2016-03-17] MEDS: PROTONIX PO SCH (09:13)
[2016-03-17] MEDS: AMARYL PO SCH (09:13)
[2016-03-17] MEDS: BABY ASPIRIN PO SCH (09:13)
[2016-03-17] MEDS: GLUCOPHAGE PO SCH (09:14)
--- NOTE | 2016-03-17 13:18 | Discharge Summary ---
Providers - Providers Date of Admission: 03/14/16 15:11 Date of discharge: 03/17/16 Attending physician: CLOTILDE ALVAREZ 03/14/16 17:37 Consult to Case Management [CONS] Routine Services Needed at Discharge: Home Health Services Notified:: case management Consult to Dietitian/Nutrition [CONS] Routine Physician Instructions: Teach finger sticks Reason For Exam: New onset DM Reason for Consult: Diet education 03/15/16 13:13 Consult to Physician [CONS] Routine Consulting Provider: JEROME CARROLL Reason For Exam: acute cva Place consult to:: chun Notified:: chun 03/16/16 09:04 Physical Therapy Evaluation and Treat [CONS] Routine Comment: Reason For Exam: placement Primary care physician: DISABILITY LIAISON OFFICER Hospitalization Reason for admission: imbalance, right-sided weakness Condition: Stable Pertinent studies: CT head Brain MRI Carotid Doppler Stress test ECHO Hospital course: Patient is a 70 years old male with no past medical history who presented to ER complaining of sudden imbalance and right-sided weakness that lasted only a few minutes. CT head had no acute abnormalities, but brain MRI revealed an acute area of ischemia left basal ganglia. Also he was diagnosed with diabetes and hyperlipidemia. She was counseled regarding all his new diagnosis; started on aspirin and statin, as well as, on by mouth antidiabetics ; advised to closely follow with his PCP as he most likely will need initiation of insulin therapy (A1c 10.5; he prefers to discuss with PCP regarding insulin). Discharge diagnosis: 1. Acute CVA CT with no acute findings, but MRI with acute ischemia left basal ganglia ECHO normal Carotid Doppler with<50% stenoses bilaterally No residual deficits Started on aspirin and statin 2. New onset diabetes Hemoglobin A1c 10.5 Started on by mouth antidiabetics; follow-up with PCP in discussion about insulin therapy Counseled 3. Hyperlipidemia Started on statin Disposition: DISCHARGED TO HOME OR SELFCARE Time spent for discharge: 35 min Core Measure Documentation - Palliative Care Palliative Care/ Comfort Measures: Not Applicable - Core Measures Any of the following diagnoses?: stroke - Stroke Discharge Requirements Statin for LDL = or >70 mg/dl on DC: Yes Anticoag for atrial fib/atrial flutter: Not Applicable Antithrombotic for ischemic stroke: Yes Exam - Physical Exam Narrative exam: Patient seen and examined: - Constitutional Vitals: Temp Pulse Resp BP Pulse Ox 97.8 F 66 18 130/80 97 01/31/17 04:35 03/17/16 11:41 03/17/16 08:39 03/17/16 08:39 03/17/16 08:39 General appearance: Present: no acute distress - EENT Eyes: Present: PERRL, EOM intact. Absent: scleral icterus, conjunctival injection - Neck Neck: Present: supple, normal ROM. Absent: masses or JVD, carotid bruits - Respiratory Respiratory effort: normal Respiratory: bilateral: CTA, negative: rhonchi, wheezing - Cardiovascular Rhythm: regular Heart Sounds: Present: S1 & S2. Absent: systolic murmur - Extremities Extremities: no ischemia - Abdominal General gastrointestinal: Present: soft, non-tender, non-distended, normal bowel sounds - Musculoskeletal Musculoskeletal: strength equal bilaterally - Psychiatric Psychiatric: cooperative - Neurologic Neurologic: CNII-XII intact, no focal deficits Plan Activity: advance as tolerated Diet: low cholesterol, low salt, diabetic Follow up with: PRIMARY CARE, [Primary Care Provider] - 3-5 Days Prescriptions: AtorvaSTATin [Lipitor] 40 mg PO QHS #30 tablet Glimepiride [Amaryl] 1 mg PO QDDIAB #60 tablet Aspirin [Aspirin BABY CHEW TAB] 81 mg PO QDAY #30 tab.chew metFORMIN [Glucophage] 500 mg PO BIDDIAB #60 tablet
== END 2016-03-17 13:43 | disposition home or self-care (01) | DRG 65 ==
LOC: ED 13:28 → 4A 15:11
PROVIDERS: ADMIT Emergency Medicine; ATTEND Internal Medicine
DX: I63.9 Cerebral infarction, unspecified (principal); G81.91 Hemiplegia, unspecified affecting right dominant side; E11.9 Type 2 diabetes mellitus without complications; E78.5 Hyperlipidemia, unspecified; Z82.49 Family history of ischemic heart disease and other diseases of the circulatory system; Z83.3 Family history of diabetes mellitus
CPT/HCPCS: 36415; 70450; 70551; 78452; 80048; 80061; 80074; 80307; 80320; 82962; 83036; 83735; 84484; 85025; 85610; 85670; 85730; 93005; 93010; 93017; 93306; 93880; 96372; A9270-GY; A9502; G0480; J1650; J1815; J2785

== ENCOUNTER 2016-05-29 18:44 | Emergency (ER) | payer MEDICARE ==
[2016-05-29 20:20] VITALS: BP 142/84
--- NOTE | 2016-05-29 21:08 | Emergency Department Report ---
ED Medical Clearance HPI - General Chief complaint: Extremity Problem,Nontraumatic Stated complaint: FEETING BURNING AFTER TAKING PRESCRIPTION Time Seen by Provider: 05/29/16 20:55 Source: patient Mode of arrival: Ambulatory - History of Present Illness Initial comments: 71-year-old male presents to the emergency room with the complaints of medication refill. Patient stated that he is out of his metformin and glimepiride since last few days. Continue having tingling and pain in his lower extremity area from diabetes. Denies any other complaints. MD Complaint: other (meication refill for Glimipiride and Metformin) -: Gradual, days(s) (3) Place: home Alledged Intoxication: No Compliant with Home Medications: No Traumatic Symptoms: denies traumatic injury Associated Symptoms: denies: chest pain, shortness of breath, palpitations, diaphoresis, denies other symptoms, confusion Treatments Prior to Arrival: none Home medications: Previous Rx's Medication Instructions Recorded Last Taken Type Aspirin [Aspirin BABY CHEW TAB] 81 mg PO QDAY #30 tab.chew 03/16/16 Unknown Rx AtorvaSTATin [Lipitor] 40 mg PO QHS #30 tablet 03/16/16 Unknown Rx Glimepiride [Amaryl] 1 mg PO QDDIAB #60 tablet 03/16/16 Unknown Rx metFORMIN [Glucophage] 500 mg PO BIDDIAB #60 tablet 03/16/16 Unknown Rx Glimepiride [Amaryl] 2 mg PO BID #60 tablet 05/29/16 Unknown Rx metFORMIN [Glucophage] 500 mg PO BID #60 tablet 05/29/16 Unknown Rx Allergies/Adverse reactions: Allergies Allergy/AdvReac Type Severity Reaction Status Date / Time No Known Allergies Allergy Unverified 03/14/16 13:29 ED Review of Systems ROS: Stated complaint: FEETING BURNING AFTER TAKING PRESCRIPTION Other details as noted in HPI Comment: All other systems reviewed and negative Constitutional: denies: chills, fever Eyes: denies: eye pain, eye discharge, vision change ENT: denies: ear pain, throat pain Respiratory: denies: cough, shortness of breath, wheezing Cardiovascular: denies: chest pain, palpitations Endocrine: no symptoms reported Gastrointestinal: denies: abdominal pain, nausea, diarrhea Genitourinary: denies: urgency, dysuria Musculoskeletal: denies: back pain, joint swelling, arthralgia Skin: denies: rash, lesions Neurological: denies: headache, weakness, paresthesias Psychiatric: denies: anxiety, depression Hematological/Lymphatic: denies: easy bleeding, easy bruising ED Past Medical Hx - Past Medical History Previous Medical History?: Yes Hx Diabetes: Yes - Surgical History Past Surgical History?: No - Family History Family history: no significant - Social History Smoking Status: Never Smoker Substance Use Type: None - Medications Home Medications: Home Medications Medication Instructions Recorded Confirmed Last Taken Type Aspirin [Aspirin BABY CHEW TAB] 81 mg PO QDAY #30 tab.chew 03/16/16 Unknown Rx AtorvaSTATin [Lipitor] 40 mg PO QHS #30 tablet 03/16/16 Unknown Rx Glimepiride [Amaryl] 1 mg PO QDDIAB #60 tablet 03/16/16 Unknown Rx metFORMIN [Glucophage] 500 mg PO BIDDIAB #60 tablet 03/16/16 Unknown Rx Glimepiride [Amaryl] 2 mg PO BID #60 tablet 05/29/16 Unknown Rx metFORMIN [Glucophage] 500 mg PO BID #60 tablet 05/29/16 Unknown Rx ED Physical Exam - General Limitations: No Limitations General appearance: alert, in no apparent distress - Head Head exam: Present: atraumatic, normocephalic - Eye Eye exam: Present: normal appearance - ENT ENT exam: Present: normal exam, mucous membranes moist - Neck Neck exam: Present: normal inspection - Respiratory Respiratory exam: Present: normal lung sounds bilaterally. Absent: respiratory distress - Cardiovascular Cardiovascular Exam: Present: regular rate, normal rhythm. Absent: systolic murmur, diastolic murmur, rubs, gallop - GI/Abdominal GI/Abdominal exam: Present: soft, normal bowel sounds - Rectal Rectal exam: Present: deferred - Extremities Exam Extremities exam: Present: normal inspection - Back Exam Back exam: Present: normal inspection - Neurological Exam Neurological exam: Present: alert, oriented X3 - Psychiatric Psychiatric exam: Present: normal affect, normal mood - Skin Skin exam: Present: warm, dry, intact, normal color. Absent: rash ED Course Vital Signs 05/29/16 20:04 Temperature 97.6 F Pulse Rate 73 Respiratory 20 Rate Blood Pressure 142/84 O2 Sat by Pulse 98 Oximetry ED Disposition Clinical Impression: Medication refill Disposition: DISCHARGED TO HOME OR SELFCARE Is pt being admited?: No Does the pt Need Aspirin: No Condition: Good Instructions: Diabetes Mellitus Type 2 in Adults (ED) Prescriptions: Glimepiride [Amaryl] 2 mg PO BID #60 tablet metFORMIN [Glucophage] 500 mg PO BID #60 tablet Referrals: [facility] [Outside] - 3-5 Days
== END 2016-05-29 21:20 | disposition home or self-care (01) ==
LOC: ED 18:44
DX: Z76.0 Encounter for issue of repeat prescription (principal); E11.9 Type 2 diabetes mellitus without complications; Z79.82 Long term (current) use of aspirin
CPT/HCPCS: 82962; 99282